=== PATIENT | male | born 1985 | race Two or more races ===

== ENCOUNTER 2023-04-02 23:05 | Emergency (ER) | payer SELFPAY ==
[2023-04-02 23:12] VITALS: BP 146/93; PULSE 115; RESP 16; TEMP 36.7; O2SAT 99
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
[2023-04-02 23:31] LABS: POC Glucose,Bedside 153 (70-110)
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
[2023-04-02 23:35] LABS: Chloride 103 mmol/L (98-107); Potassium 4.5 mmoL/L (3.5-5.1); Sodium 139 mmol/L (136-145)
[2023-04-02 23:37] LABS: Basophils # 0.1 K/mm3 (0-0.2); Basophils % 0.4 % (0.1-2.0); Eosinophils # 0.2 K/mm3 (0.0-0.4); Eosinophils % 1.4 % (0.1-12.0); Hematocrit 49.7 % (42.0-52.0); Hemoglobin 16.4 g/dL (14.1-18.0); Lymphocytes # 1.9 K/mm3 (0.7-4.5); Lymphocytes % 13.7 % (10-50); Mean Corpuscular HGB Conc 33.1 g/dL (31.8-35.4); Mean Corpuscular Hemoglobin 28.9 pg (27.0-31.2); Mean Corpuscular Volume 87.2 fl (80-94); Mean Platelet Volume 8.8 fl (7.4-10.4); Monocytes # 0.4 K/mm3 (0.1-1.0); Monocytes % 3.2 % (1.7-9.3); Neutrophils # 11.2 K/mm3 (1.8-7.8); Neutrophils % 81.3 % (37.0-80.0); Platelet Count 322 K/mm3 (142-424); Red Cell Distribution Width 14.4 % (11.5-17.5); White Blood Count 13.8 K/mm3 (4.8-10.8)
[2023-04-02 23:38] LABS: Alanine Aminotransferase 80 U/L (12-78); Albumin Level 4.7 g/dl (3.5-5.0); Albumin/Globulin Ratio 1.1 (1.1-1.8); Alkaline Phosphatase 98 U/L (38-126); Anion Gap 19.5 mEq/L (5-15); Aspartate Amino Transferase 78 U/L (17-59); Bilirubin,Total 0.7 mg/dl (0.2-1.3); Blood Urea Nitrogen 11 mg/dl (9-20); Carbon Dioxide 21 mmol/L (22.0-30.0); Estimated Glomerular Filt Rate 109 ml/min (>60); GFR (African American) 132 ML/MIN (>60); Globulin 4.2 g/dL (1.3-3.2); Total Protein,Serum 8.9 g/dl (6.3-8.2)
[2023-04-02 23:39] LABS: Calcium 8.2 mg/dl (8.4-10.2); Glucose 134 mg/dl (74-100)
--- NOTE | 2023-04-03 00:14 | PC.NURSE ---
Spoke with pt using the Ipad and pipe inspector, pt reports having a tetanus vaccine in the last few years, provider aware, order canceled, pt reports NKA, no medical problems or surgeries.
--- NOTE | 2023-04-03 00:37 | PC.NURSE ---
bedside to repair lac
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
[2023-04-03 01:08] VITALS: BP 124/71; PULSE 124; RESP 16; TEMP 36.8; O2SAT 100
== END 2023-04-03 01:09 | disposition home or self-care (01) ==
PROVIDERS: Emergency Provider Emergency Medicine
DX: S41.112A Laceration without foreign body of left upper arm, initial encounter (principal); V48.0XXA Car driver injured in noncollision transport accident in nontraffic accident, initial encounter; Z23 Encounter for immunization
CPT/HCPCS: 12001; 70450; 71275; 72125; 72128; 72131; 73060; 74174; 80053; 82962; 85025; 86850; 96360; 96372; 99285; Q9967